=== PATIENT | male | born 1990 | race Caucasian/White ===

== ENCOUNTER → 2017-09-22 | Outpatient (CLI) | payer BC ==
[~2017-09-22] MED LIST: LEVE500T53 PO; LEVE750T37 PO
== END ==
LOC: STAR 11:00
PROVIDERS: ATTEND Orthopaedic Surgery
DX: Z02.9 Encounter for administrative examinations, unspecified (principal)

== ENCOUNTER 2017-09-30 06:35 | Day surgery (SDC) | payer BC ==
[~2017-09-30] VITALS: Ht 188 cm; Wt 88.6 kg
[2017-09-30 06:54] VITALS: BP 121/72
[2017-09-30] MEDS ORDERED: LACTATED RINGERS 1,000 ML IV SCH (07:00)
[2017-09-30] MEDS ORDERED: MIDAZOLAM 1 MG/ML, 2ML ONE (07:03)
[2017-09-30] MEDS ORDERED: FENTANYL PF 250 MCG/5ML ONE (07:03)
[2017-09-30] MEDS ORDERED: BUPIVACAINE/PF-EPI 0.5% 1:200K ONE (07:04)
[2017-09-30] MEDS ORDERED: LIDOCAINE-MPF 1%, 5ML ONE (07:06)
[2017-09-30] MEDS ORDERED: PROPOFOL 10 MG/ML, 20ML ONE ×2 (07:07→15:58)
[2017-09-30] MEDS ORDERED: CEFAZOLIN 1,000 MG ONE ×3 (07:08→15:58)
[2017-09-30] MEDS ORDERED: EPINEPHRINE 1 MG/ML, 1ML ONE (07:08)
[2017-09-30] MEDS ORDERED: WATER-INJECTION,STERILE 10 ML IV ONE (07:08)
[2017-09-30] MEDS ORDERED: ROPIvacaine/PF 0.2%, 20 ML ONE (07:11)
[2017-09-30] MEDS ORDERED: KEPPRA MC SCH (07:30)
[2017-09-30] MEDS ORDERED: ACETAMINOPHEN 325 MG TABLET PO PRN (08:00)
[2017-09-30] MEDS ORDERED: PROMETHAZINE 25 MG SUPP PR PRN (08:00)
[2017-09-30] MEDS ORDERED: PROMETHAZINE 25 MG/ML, 1ML IV PRN (08:00)
[2017-09-30] MEDS ORDERED: FENTANYL PF 100 MCG/2ML IV PRN (08:00)
[2017-09-30] MEDS ORDERED: ONDANSETRON 2MG/ML, 2ML IV PRN (08:00)
[2017-09-30] MEDS ORDERED: OXYcodone 5 MG/5 ML ORAL.SOL UDC PO PRN (08:00)
[2017-09-30] MEDS ORDERED: ONDANSETRON ODT 8 MG PO PRN (08:00)
[2017-09-30] MEDS ORDERED: hydrALAzine 20 MG/ML, 1ML IV PRN (08:00)
[2017-09-30] MEDS ORDERED: MORPHINE SULFATE 4 MG/ML, 1ML IVPush PRN (08:00)
[2017-09-30] MEDS ORDERED: HYDROmorphone 1 MG/ML, 1ML IV PRN (08:00)
[2017-09-30] MEDS ORDERED: MEPERIDINE/PF 25MG/0.5ML IVPush PRN (08:00)
[2017-09-30] MEDS ORDERED: LABETALOL 5MG/ML, 20ML IV PRN (08:00)
[2017-09-30] MEDS ORDERED: PROMETHAZINE 12.5 MG SUPP PR PRN (08:00)
[2017-09-30] MEDS ORDERED: LEVETIRACETAM 500 MG TABLET PO SCH ×2 (09:00)
[2017-09-30] MEDS ORDERED: KETOROLAC 30 MG/1 ML ONE ×2 (10:04→15:58)
[2017-09-30] MEDS ORDERED: FENTANYL PF 100 MCG/2ML ONE (10:39)
[2017-09-30] MEDS ORDERED: OXYcodone 5 MG/5 ML ORAL.SOL UDC ONE (10:39)
[2017-09-30] MEDS ORDERED: ACETAMINOPHEN 650 MG/20.3 ML UDC ONE (10:39)
== END 2017-09-30 12:45 ==
LOC: OUT 06:35
PROVIDERS: ATTEND Orthopaedic Surgery
DX: S83.281A Other tear of lateral meniscus, current injury, right knee, initial encounter (principal); M25.561 Pain in right knee; M65.861 Other synovitis and tenosynovitis, right lower leg; Z87.891 Personal history of nicotine dependence; Z72.89 Other problems related to lifestyle; X58.XXXA Exposure to other specified factors, initial encounter; Y93.89 Activity, other specified; Y92.89 Other specified places as the place of occurrence of the external cause; Y99.8 Other external cause status
CPT/HCPCS: 29880; 29881; C1713; J0171; J0690; J1885; J2250; J2704; J2795; J3010; J7120